=== PATIENT | female | born 2000 | race Caucasian/White ===

== ENCOUNTER 2023-07-22 22:23 | Emergency (ER) | payer BC, SELFPAY ==
[2023-07-22 22:36] VITALS: PULSE 76; O2SAT 97
[2023-07-22 22:40] VITALS: BP 124/78; PULSE 67; RESP 17; O2SAT 97
--- NOTE | 2023-07-22 22:47 | DI.RAD.S_ITS ---
PROCEDURE: XR CHEST 1V INDICATIONS: syncope TECHNIQUE: One view of the chest was acquired. COMPARISON: None. FINDINGS: Surgical changes and devices: None. Lungs and pleura: Lungs are clear. No pleural effusions or pneumothorax. Mediastinum: Mediastinal contours appear normal. Heart size is normal. Bones and chest wall: No suspicious bony lesions. Overlying soft tissues appear unremarkable. IMPRESSION: No acute cardiopulmonary abnormality is seen. Approved by: Fabiano Martins M.D. on 07/23/2023 at 0:29
--- NOTE | 2023-07-22 22:54 | ED_ITS ---
HPI - General Adult General Chief complaint: Syncope Stated complaint: Syncope Time Seen by Provider: 07/22/23 22:47 Source: patient Mode of arrival: Ambulatory History of Present Illness HPI narrative: 23-year-old woman who took her 1st dose of 50 mg of Zoloft and 5 mg of olanzapine today for new a history of bipolar disorder with worsening depression presents with a near syncopal episode. She was reportedly sitting at dinner felt funny and proceeded to almost pass out. Her family describes her still mumbling throughout the event. EMS came to evaluate her and told her that if she wanted further evaluation that self transport to the ER would be safe. She comes in for further evaluation. She states that she has otherwise been feeling well, no calorie restrictions, no weight loss, no nausea or vomiting, no chest pain no palpitations, no infectious etiology complaints or concerns no headaches.. She states she has had episodes similar to this previously with workup that was unremarkable at those times as well. Related Data Allergies Allergy/AdvReac Type Severity Reaction Status Date / Time No Known Drug Allergies Allergy Verified 07/22/23 23:02 Review of Systems Review of Systems Narrative: Pertinent positive and negative findings as per HPI Patient History Medical History (Updated 07/23/23 @ 00:12 by Naila Humphrey MD) Bipolar disorder Social History Smoking Status: Never smoker Smoking Status: Never smoker alcohol intake frequency: a few times a month Alcohol type: other Exam Initial Vital Signs Initial Vital Signs: Vital Signs Pulse Rate 76 07/22/23 22:36 Pulse Oximetry 97 07/22/23 22:36 Oxygen Delivery Method Room Air 07/22/23 22:36 General: Healthy appearing, in no acute distress. Able to give a complete and coherent history. Well-nourished well-developed After a L of fluid there was no evidence of any orthostasis HEENT: Moist mucous membranes, normal sclera with reactive pupils, Respiratory: Lungs are clear to auscultation, no wheezing no rales no rhonchi. Full and symmetrical air movement Cardiac: Regular rate and rhythm no murmurs no bruits Abdomen: Soft, nontender, good bowel tones, no flank pain Skin: Warm and dry, no rashes Neurologic: Grossly neurologically intact with no obvious asymmetries or abnormalities Extremities: No trauma, well perfused Psych: Cooperative, appropriate insight and affect Course Orders Ordered: ED Orders 07/22/23 22:47 XR chest 1V Stat EKG-12 Lead Stat 07/22/23 22:56 Complete Blood Count AUTO DIFF Stat Comprehensive Metabolic Panel Stat Magnesium Stat Troponin I Stat Discontinued Medications Sodium Chloride (Normal Saline 0.9%) 1,000 mls @ 1,000 mls/hr IV BOLUS ONE Stop: 07/22/23 23:46 Last Admin: 07/22/23 23:03 Dose: 1,000 mls/hr Documented By: GODFREY Vital Signs Vital signs: Vital Signs - 8 hr 07/22/23 22:36 07/22/23 22:40 07/22/23 23:00 Pulse Rate 76 67 72 Respiratory Rate 17 22 Blood Pressure 124/78 Pulse Oximetry 97 97 99 Oxygen Delivery Method Room Air Room Air Room Air Medical Decision Making Lab Data 07/22/23 22:56 07/22/23 22:56 Labs: Lab Results 07/22/23 Range/Units 22:56 WBC 7.4 (4.5-11.0) X10^3/uL RBC 4.39 (4.0-5.2) X10^6/uL Hgb 12.3 (12.0-16.0) g/dL Hct 37.2 (36-46) % MCV 84.8 (80-100) fL MCH 28.1 (26-34) PG MCHC 33.1 (30-36) % RDW 16.4 H (11.6-14.8) % Plt Count 255 (150-400) X10^3/uL Neut % (Auto) 73.5 (50-75) % Lymph % (Auto) 15.6 L (25-40) % [place] % (Auto) 10.0 (3-14) % Eos % (Auto) 0.4 L (2-4) % Baso % (Auto) 0.5 (0-2) % Neut # (Auto) 5500 (8297-3700) /uL Lymph # (Auto) 1200 (0350-2503) /uL [place] # (Auto) 700 (0-900) /uL Eos # (Auto) 0 (0-450) /uL Baso # (Auto) 0 (0-100) /uL Sodium 136 L (137-145) mmol/L Potassium 4.0 (3.4-5.1) mmol/L Chloride 106 (98-107) mmol/L Carbon Dioxide 23 (22-32) mmol/L BUN 8 (7-17) mg/dL Creatinine 0.59 (0.52-1.04) mg/dL Estimated GFR > 60 (>60) mL/min BUN/Creatinine Ratio 13.6 (6-22) Glucose 118 H (70-100) mg/dL Calcium 9.2 (8.4-10.2) mg/dL Magnesium 1.9 (1.6-2.3) mg/dL Total Bilirubin 0.4 (0.2-1.3) mg/dL AST 27 (14-36) IU/L ALT 13 (<35) IU/L Alkaline Phosphatase 79 (38-126) U/L Troponin I < 0.012 (0.01-0.034) ng/mL Total Protein 7.5 (6.3-8.2) g/dL Albumin 4.4 (3.5-5.0) g/dL Globulin 3.1 (1.7-4.1) g/dL Albumin/Globulin Ratio 1.4 (1.0-2.8) MDM Narrative Medical decision making narrative: CC: Near syncopal episode while sitting down Complicating co-morbidities: Bipolar disorder Data collected from: patient Differential considered: Adverse medication reaction, orthostatic hypotension, cardiac syncope Exam documented above, pertinent findings include: Exam is entirely benign Lab Test results independently reviewed as above. Pertinent findings: CBC is reassuring no evidence of infection or significant anemia Chemistries are all within normal limits with normal creatinine and electrolytes Troponin is undetectable Independently reviewed EKG: Sinus rhythm at a rate of 67. Normal QT, no acute ischemic changes Imaging studies independently reviewed: Chest x-ray shows no significant cardiomegaly or pulmonary infiltrates Treatments: 1 L of fluid Discussion: 23-year-old woman with near syncopal episode at dinner this evening. She had taken 5 mg of olanzapine and 50 mg of Zoloft as 1st doses of each distal couple hours before. Workup is entirely unremarkable. I suspect there was a moderate degree of orthostatic hypotension and her body needs a bit more time to adjust to the new doses of antidepressants. We discussed continuing with only 5 mg of olanzapine for approximately a week to allow her body to adjust to this. After that increasing/adding 25 mg of Zoloft and giving that dosing combination 2-3 weeks to adjust and see how she is feeling mood hopkins. She may not need to increase to 50 mg of Zoloft quite so quickly or at all. She finds this reasonable recommendation we will give it a try. She is reassured regarding normal workup. I do not suspect cardiomyopathy, cardiac syncope, stroke, sepsis, anemia, infection otherwise. Patient is not . Questions are answered additional workup is not required at this time and patient does not need hospitalization. She is safe for discharge Discharge Plan Departure Patient Disposition: Home Clinical Impression: Near syncope Instructions: DI for Syncope in Adults (Fainting) Activity Restrictions/Additional Instructions: Thank you for coming in today Your workup was actually very reassuring. You were given a L of fluid and I suspect that you were slightly dehydrated. Your kidney function, electrolytes, red blood cells and white blood cells were all very normal. I did a chest x-ray that was normal as well. There was no evidence of an enlarged heart, heart abnormalities or heart attack like symptoms. I suspect that the episode was related to your new medications. I am going to suggest that you start them at a bit lower doses and a bit more slowly. Going to suggest that you continue the 5 mg of olanzapine daily for the next week. On or about July 29 add in 25 mg of Zoloft. Please continue this combination for 2-3 weeks and see how your body response. If you find that you are mood is improving and you are not having any manic symptoms you may find that this lower dose of Zoloft in combination with the olanzapine is adequate. If not then add the 2nd half of the Zoloft tablet and go up to 50 mg as initially prescribed. If you find that you are getting worse or develop any new symptoms, please feel free to return to the emergency department for further evaluation. Stand Alone Forms: Patient Portal/API
[2023-07-22 23:00] VITALS: PULSE 72; RESP 22; O2SAT 99
[2023-07-22] MEDS: SODIUM CHLORIDE 0.9% 1,000 ML 1000 ML IV (23:03)
[2023-07-22 23:04] LABS: Add Manual Diff / Slide Review NO; Basophils Absolute Auto 0 /uL (0-100); Basophils Percent Auto 0.5 % (0-2); Eosinophils Absolute Auto 0 /uL (0-450); Eosinophils Percent Auto 0.4 % (2-4); Hematocrit 37.2 % (36-46); Hemoglobin 12.3 g/dL (12.0-16.0); Lymphocytes Absolute Auto 1200 /uL (1100-4500); Lymphocytes Percent Auto 15.6 % (25-40); Mean Corpuscular HGB Conc 33.1 % (30-36); Mean Corpuscular Hemoglobin 28.1 PG (26-34); Mean Corpuscular Volume 84.8 fL (80-100); Monocytes Absolute Auto 700 /uL (0-900); Neutrophils Absolute Auto 5500 /uL (1500-7000); Neutrophils Percent Auto 73.5 % (50-75); Platelet Count 255 X10^3/uL (150-400); Red Blood Cell Count 4.39 X10^6/uL (4.0-5.2); Red Cell Distribution Width 16.4 % (11.6-14.8); White Blood Cell Count 7.4 X10^3/uL (4.5-11.0)
[2023-07-22 23:14] LABS: Alanine Aminotransferase 13 IU/L (<35); Albumin 4.4 g/dL (3.5-5.0); Albumin Globulin Ratio 1.4 (1.0-2.8); Alkaline Phosphatase 79 U/L (38-126); Aspartate Aminotransferase 27 IU/L (14-36); BUN Creatinine Ratio 13.6 (6-22); Bilirubin Total 0.4 mg/dL (0.2-1.3); Blood Urea Nitrogen 8 mg/dL (7-17); Calcium 9.2 mg/dL (8.4-10.2); Carbon Dioxide 23 mmol/L (22-32); Chloride 106 mmol/L (98-107); Estimated Glomerular Filt Rate > 60 mL/min (>60); Globulin 3.1 g/dL (1.7-4.1); Glucose 118 mg/dL (70-100); HEMOLYSIS < 15 (0-50); Magnesium 1.9 mg/dL (1.6-2.3); Sodium 136 mmol/L (137-145); Total Protein 7.5 g/dL (6.3-8.2)
[2023-07-22 23:25] LABS: Troponin I < 0.012 ng/mL (0.01-0.034)
[2023-07-22 23:30] VITALS: PULSE 68; RESP 19; O2SAT 100
[2023-07-22 23:51] VITALS: BP 112/79; PULSE 80; RESP 20; O2SAT 99
[2023-07-23] VITALS: BP 107/61; PULSE 73; RESP 21; O2SAT 99
== END 2023-07-23 00:22 | disposition home or self-care (01) ==
PROVIDERS: Emergency Provider Emergency Medicine
DX: R55 Syncope and collapse (principal)
CPT/HCPCS: 71045; 80053; 83735; 84484; 85025; 93005; 99283; 99284

== ENCOUNTER 2024-07-24 11:58 | Inpatient (IN) | payer BC, OTHER, SELFPAY ==
[2024-07-24] VITALS (19 sets, daily range): BP systolic 88–112; BP diastolic 39–65; PULSE 92–131; RESP 16–48; TEMP 36.1–38.9; O2SAT 94–98; BMI 20.5
--- NOTE | 2024-07-24 12:17 | DI.RAD.S_ITS ---
PROCEDURE: XR CHEST 1V INDICATIONS: suspected sepsis TECHNIQUE: One view of the chest was acquired. COMPARISON: [facility], CR, XR CHEST 1V, 07/22/2023, 22:47. FINDINGS: Surgical changes and devices: None. Lungs and pleura: Subtle left basilar focal infiltrate. Remainder of the lungs and both pleural spaces clear. Mediastinum: Mediastinal contours appear normal. Heart size is normal. Bones and chest wall: No suspicious bony lesions. Overlying soft tissues appear unremarkable. IMPRESSION: Subtle left basilar focal pulmonary infiltrate Approved by: Lj Anglin M.D. on 07/24/2024 at 12:01
--- NOTE | 2024-07-24 12:17 | EKG_ITS ---
[address] [address] Test Date: 2024-07-24 Pat Name: Gracia Cross Department: [facility] Room: Gender: Female Flame Planer: RALPH : 2000 Requested By: Order Number: [id number] Reading MD: Mike Holt Measurements Intervals [place] Rate: 118 P: 67 AK: 118 QRS: 41 QRSD: 96 T: 48 QT: 300 QTc: 420 Interpretive Statements Sinus tachycardia Incomplete right bundle branch block Electronically Signed On 07-24-2024 13:58:35 PDT by Mike Holt
[2024-07-24] MEDS: SODIUM CHLORIDE 0.9% 1,000 ML 1000 ML IV (12:44)
[2024-07-24 12:48] LABS: Hematocrit 32.9 % (36-46); Hemoglobin 11.1 g/dL (12.0-16.0); Mean Corpuscular HGB Conc 33.7 % (30-36); Mean Corpuscular Volume 86.1 fL (80-100); Platelet Count 61 X10^3/uL (150-400); Red Blood Cell Count 3.82 X10^6/uL (4.0-5.2); Red Cell Distribution Width 14.7 % (11.6-14.8)
[2024-07-24 12:50] LABS: Add Manual Diff / Slide Review YES
[2024-07-24 12:57] LABS: INR 1.1 (0.9-1.3); Prothrombin Time 12.6 SECONDS (9.4-12.5)
[2024-07-24 13:00] LABS: Lactate (Lactic Acid) 0.9 mmol/L (0.7-2.1); PTT Partial Thromboplastin Tim 27 SECONDS (25.1-36.5)
[2024-07-24 13:01] LABS: Alanine Aminotransferase 20 IU/L (<35); Albumin 3.4 g/dL (3.5-5.0); Alkaline Phosphatase 119 U/L (38-126); Aspartate Aminotransferase 35 IU/L (14-36); BUN Creatinine Ratio 19.1 (6-22); Bilirubin Total 0.8 mg/dL (0.2-1.3); Blood Urea Nitrogen 13 mg/dL (7-17); Calcium 8.2 mg/dL (8.4-10.2); Carbon Dioxide 21 mmol/L (22-32); Chloride 94 mmol/L (98-107); Estimated Glomerular Filt Rate > 60 mL/min (>60); Globulin 3.3 g/dL (1.7-4.1); Glucose 128 mg/dL (70-99); HEMOLYSIS < 15 (0-50); Lipase 57 U/L (23-300); Potassium 3.2 mmol/L (3.4-5.1); Sodium 125 mmol/L (137-145); Total Protein 6.7 g/dL (6.3-8.2)
[2024-07-24 13:09] LABS: Neutrophils Absolute Manual 13950 /uL (3000-5900); RBC Morphology Normal Morphology; Total Cells Counted 100
[2024-07-24] MEDS: ACETAMINOPHEN 325 MG TABLET 975 MG PO (13:09)
[2024-07-24 13:18] LABS: Procalcitonin 26.5 ng/mL (<0.5)
--- NOTE | 2024-07-24 13:26 | ED.FEVER ---
HPI - Fever General Chief Complaint: Fever Stated Complaint: hypertension sent by walk in Time Seen by Provider: 07/24/24 12:50 Source: patient, RN notes reviewed and old records reviewed Mode of arrival: Family Vehicle Limitations: no limitations History of Present Illness HPI Narrative: 24-year-old female with no reported medical issues presents with complaint of feeling ill for about a week, patient's develop fevers, she developed a cough in the last 3 days she states has been mildly productive but no discoloration. Describes some left-sided chest pain, patient has felt more short of breath. She has had some nausea and vomiting. She was also had some diarrhea. No black or bloody stools. No urinary symptoms. No abdominal back or flank pain. Patient states no daily medications. No history of reactive airway or asthma. Reports an allergy to amoxicillin that has a rash as a baby but also notes it may has been from a viral illness. Has a surgery for a cyst on her head when she was a baby. Occasionally uses tobacco, uses alcohol intermittently, uses marijuana denies any other recreational or IV drugs. Patient lives on [facility]. Does not have a primary care physician. Related Data Home Medications ?Medication ?Instructions ?Recorded ?Confirmed No Known Home Medications 07/24/24 07/24/24 Allergies Allergy/AdvReac Type Severity Reaction Status Date / Time amoxicillin Allergy Rash Verified 07/24/24 12:12 Review of Systems Review of Systems ROS Unobtainable: All systems reviewed & are unremarkable except as noted in HPI and below Patient History Medical History Bipolar disorder Social History Smoking Status: Current every day smoker Smoking Status: Current every day smoker tobacco type: cigarettes alcohol intake frequency: a few times a month Alcohol type: other Exam Narrative Exam Narrative: GEN: Thin, nontoxic female, alert and oriented x 3, patient appears to be in [id number] distress. HEENT: Atraumatic, pupils are equal round reactive to light, extraocular movements are intact, nares are clear, TMs are clear with no fluid, there is no conjunctival pallor. Throat is clear without any exudates, erythema, tonsillar enlargement or uvular deviation, slightly dry mucous membranes HEART: Tachycardic but regular rate and rhythm without murmur, clicks, rubs. No carotid bruits, pulses are equal in upper and lower extremities LUNGS:Lungs decreased bilaterally, no wheezes, positive for tachypnea rales, crackles, chest moves symmetrically, patient was evaluated after receiving nebulizer treatment tachypnea has not improved able to speak in full sentences. ABD:bowel sounds normal, soft, non-tender, no guarding, rebound, rigidity, no masses noted, no hepatosplenomegaly :No CVA tenderness MSCL: Non-tender, no muscle atrophy, muscles strength 5/5 upper and lower extremities, full range of motion, normal gait NEURO:CN 2-12 intact, sensation normal. Initial Vital Signs Initial Vital Signs: Vital Signs Temperature 102.1 F H 07/24/24 12:06 Pulse Rate 131 H 07/24/24 12:06 Respiratory Rate 24 07/24/24 12:06 Blood Pressure 94/54 L 07/24/24 12:06 Pulse Oximetry 94 07/24/24 12:06 Oxygen Delivery Method Room Air 07/24/24 12:06 Course Orders Ordered: ED Orders 07/24/24 12:17 XR chest 1V Stat EKG-12 Lead Stat RT Consult Eval and Treat NOW 07/24/24 12:30 Blood Culture Stat 07/24/24 12:37 Complete Blood Count AUTO DIFF Stat Comprehensive Metabolic Panel Stat Lactate (Lactic Acid) Stat Lipase Stat PTT Partial Thromboplastin [place] Stat Procalcitonin Stat Prothrombin Time INR Stat 07/24/24 12:45 Covid-19 + FLU A/B + RSV - PCR Stat Respiratory Panel (Film Array) Stat Albuterol (Albuterol 2.5 Mg/3 Ml Neb (Adult)) 2.5 mg INH [id number] PRN PRN Reason: Shortness Of Breath Last Admin: 07/24/24 13:39 Dose: 2.5 mg Documented By: SAT Sodium Chloride (Normal Saline 0.9%) 1,673.76 mls @ 557.92 mls/hr 30 ml/kg infuse over 3 hr (1673.76 ml) IV NOW ONE Stop: 07/24/24 16:27 Last Admin: 07/24/24 13:47 Dose: 557.92 mls/hr Documented By: LM Discontinued Medications Acetaminophen (Acetaminophen 325 Mg Tablet) 975 mg PO NOW ONE Stop: 07/24/24 12:52 Last Admin: 07/24/24 13:09 Dose: 975 mg Documented By: YUMIKO Sodium Chloride (Normal Saline 0.9%) 1,000 mls @ 1,000 mls/hr IV BOLUS ONE Stop: 07/24/24 13:16 Last Infusion: 07/24/24 13:43 Dose: 1,000 mls/hr Documented By: Admin: 07/24/24 12:44 Dose: 1,000 mls/hr Documented By: YUMIKO Ceftriaxone Sodium 1,000 mg/ (Sodium Chloride) 100 mls @ 200 mls/hr IV NOW ONE Stop: 07/24/24 13:46 Azithromycin 500 mg/ Dextrose 250 mls @ 250 mls/hr IV NOW ONE Stop: 07/24/24 13:46 Ondansetron HCl (Ondansetron 4 Mg/2 Ml Inj) 4 mg IV NOW PRN PRN Reason: Nausea And Vomiting Ondansetron HCl (Ondansetron 4 Mg Odt) 4 mg PO NOW PRN PRN Reason: Nausea And Vomiting Vital Signs Vital signs: Vital Signs - 8 hr 07/24/24 12:06 07/24/24 12:20 07/24/24 12:21 Temperature 102.1 F H Pulse Rate 131 H 125 H Respiratory Rate 24 35 H Blood Pressure 94/54 L 100/56 L Pulse Oximetry 94 Oxygen Delivery Method Room Air 07/24/24 12:21 07/24/24 12:30 07/24/24 12:36 Temperature Pulse Rate 124 H 120 H Respiratory Rate 36 H 41 H Blood Pressure 103/55 L Pulse Oximetry 94 95 Oxygen Delivery Method 07/24/24 12:36 07/24/24 12:40 07/24/24 12:40 Temperature Pulse Rate 114 H 117 H Respiratory Rate 38 H 36 H Blood Pressure 106/55 L Pulse Oximetry 95 96 Oxygen Delivery Method 07/24/24 12:50 07/24/24 12:50 07/24/24 13:00 Temperature Pulse Rate 114 H Respiratory Rate 42 H Blood Pressure 109/61 107/60 Pulse Oximetry 97 Oxygen Delivery Method 07/24/24 13:00 07/24/24 13:10 07/24/24 13:10 Temperature 98.9 F Pulse Rate 122 H 121 H Respiratory Rate 38 H 46 H Blood Pressure 110/60 Pulse Oximetry 95 95 Oxygen Delivery Method 07/24/24 13:20 07/24/24 13:20 07/24/24 13:30 Temperature Pulse Rate 118 H Respiratory Rate 48 H Blood Pressure 112/65 105/65 Pulse Oximetry 97 Oxygen Delivery Method 07/24/24 13:30 07/24/24 13:40 07/24/24 13:40 Temperature Pulse Rate 123 H 127 H Respiratory Rate 41 H 35 H Blood Pressure 88/55 L Pulse Oximetry 96 97 Oxygen Delivery Method 07/24/24 13:50 07/24/24 13:50 07/24/24 14:00 Temperature Pulse Rate 123 H 121 H Respiratory Rate 27 H 39 H Blood Pressure 106/54 L Pulse Oximetry 98 98 Oxygen Delivery Method 07/24/24 14:04 07/24/24 14:04 Temperature Pulse Rate 120 H Respiratory Rate 48 H Blood Pressure 102/55 L Pulse Oximetry 98 Oxygen Delivery Method MDM - Fever Lab Data 07/24/24 12:37 07/24/24 12:37 Labs: Lab Results 07/24/24 07/24/24 Range/Units 12:37 12:45 WBC 15.0 H (4.5-11.0) X10^3/uL RBC 3.82 L (4.0-5.2) X10^6/uL Hgb 11.1 L (12.0-16.0) g/dL Hct 32.9 L (36-46) % MCV 86.1 (80-100) fL MCH 29.0 (26-34) PG MCHC 33.7 (30-36) % RDW 14.7 (11.6-14.8) % Plt Count 61 L (150-400) X10^3/uL Neut % (Auto) Not Reportable Lymph % (Auto) Not Reportable [place] % (Auto) Not Reportable Eos % (Auto) Not Reportable Baso % (Auto) Not Reportable Lymph # (Auto) Not Reportable [place] # (Auto) Not Reportable Baso # (Auto) Not Reportable Total Counted 100 Seg Neutrophils % 83.0 H (38-70) % Band Neutrophils % 10.0 H (3-7) % Lymphocytes % (Manual) 4.0 L (25-45) % Monocytes % (Manual) 1.0 L (2-11) % Metamyelocytes % 1.0 H (-0) % Myelocytes % 1.0 H (-0) % Neutrophils # (Manual) 86006 H (1153-8873) /uL RBC Morphology Normal morphology PT 12.6 H (9.4-12.5) SECONDS INR 1.1 (0.9-1.3) APTT 27 (25.1-36.5) SECONDS Sodium 125 L (137-145) mmol/L Potassium 3.2 L (3.4-5.1) mmol/L Chloride 94 L (98-107) mmol/L Carbon Dioxide 21 L (22-32) mmol/L BUN 13 (7-17) mg/dL Creatinine 0.68 (0.52-1.04) mg/dL Estimated GFR > 60 (>60) mL/min BUN/Creatinine Ratio 19.1 (6-22) Glucose 128 H (70-99) mg/dL Lactate 0.9 (0.7-2.1) mmol/L Calcium 8.2 L (8.4-10.2) mg/dL Total Bilirubin 0.8 (0.2-1.3) mg/dL AST 35 (14-36) IU/L ALT 20 (<35) IU/L Alkaline Phosphatase 119 (38-126) U/L Total Protein 6.7 (6.3-8.2) g/dL Albumin 3.4 L (3.5-5.0) g/dL Globulin 3.3 (1.7-4.1) g/dL Albumin/Globulin Ratio 1.0 (1.0-2.8) Lipase 57 (23-300) U/L Procalcitonin 26.5 H (<0.5) ng/mL SARS-CoV-2 (PCR) Negative (Negative) Influenza A (RT-PCR) Flu a negative (NEGATIVE) Influenza B (RT-PCR) Flu b negative (NEGATIVE) RSV (PCR) Negative (Negative) ECG Data Attestation: I personally reviewed and interpreted this ECG as follows: Prior ECG tracings: not available for review Interpretation: Sinus tachycardia rate of 118, ND 118 QRS of 96 QTC 420, incomplete right bundle-branch block. No prior for comparison MDM Narrative Medical decision making narrative: Labs show white count of 15 we will 7.43 days ago, hemoglobin 0.1 platelets are 61 was 2553 days ago patient has predominance of segmented neutrophils and 10% bands. INR is 1.1, sodium is 125 was 1363 days ago potassium 3.2 chloride 94 CO2 is 21 BUN 13 creatinine 0.68 glucose of 128 lactate 0.9 LFTs are negative procalcitonin is 26.5. COVID/influenza/RSV Chest x-ray subtle left basilar focal pulmonary infiltrate. Patient had chest x-ray from 3 days ago read as negative. Patient received fluids 30 cc/kilos bolus, Tylenol, IV antibiotics. Albuterol neb. Patient's exam and workup seem most consistent with a bacterial pneumonia was started on IV antibiotics. Patient noted an allergy to amoxicillin but was noticed has a rash possibility of a has been written related to a viral illness. Patient is febrile, tachycardic, intermittently hypotensive but does seem fluid responsive. Lactate is normal range but procalcitonin is elevated at 26. Patient also has 10% bands. She was left basilar changes on her chest x-ray. On rechecked at 13 56 patient's cap refills less than 2 seconds. Patient is still tachycardic. Receiving additional fluids. Just completed nebulizer treatment patient was not wheezy on exam but has some improvement in air movement and patient notes helps symptoms quite at bit. Spoke with Dr. Holt, hospitalist @ [phone] accepts for inpatient admission. Reviewed findings, treatment thus far, does ask for respiratory panel to be added on. Critical Care Time Critical Care Time Critical Care Time: Yes Total Critical Care Time: 25 Attestation: The high probability of a clinically significant, sudden or life threatening deterioration of the cardiac/pulmonary system(s) required my full and direct attention, intervention and personal management. The aggregate critical care time was [--] minutes. This time is in addition to time spent performing reported procedures but includes the following: [x] Data Review and interpretation [x] Patient assessment and monitoring of vital signs [x] Documentation [x] Medication orders and management Discharge Plan Departure Patient Disposition: Admitted As Inpatient Clinical Impression: Community acquired pneumonia, Sepsis Admit Date/Time: 07/24/24 14:04 Admit Provider: Mike Holt
[2024-07-24 13:28] LABS: COVID-19 CEPHEID 4-PLEX PCR Negative (Negative); Influenza A - CEPHEID Flu A NEGATIVE (NEGATIVE); Influenza B - CEPHEID Flu B NEGATIVE (NEGATIVE); Respiratory Syncytial Virus Negative (Negative)
--- NOTE | 2024-07-24 13:31 | PC.NURSE ---
RT evaluated pt. Pt sitting upright on stretcher, RA, A&Ox4, breathing shallow/rapid rate of breath/even movement. Pt endorses pain on inhalation. Call light within reach. RT giving IS teaching and IS device to pt at this time
[2024-07-24] MEDS: ALBUTEROL 2.5 MG/3 ML NEB (ADULT) INH (13:39)
[2024-07-24] MEDS: SODIUM CHLORIDE 0.9% 557.92 ML IV (13:47)
[2024-07-24] MEDS: cefTRIAXone 1,000 MG in SODIUM CHLORIDE 0.9% 100 ML 200 MG IV (14:27)
[2024-07-24 14:51] LABS: Pregnancy Test Serum,Qual Negative (Negative)
[2024-07-24] MEDS: AZITHROMYCIN 500 MG in DEXTROSE 5% IN WATER 250 ML 250 MG IV (14:52)
[2024-07-24 14:59] LABS: Adenovirus Not Detected (Not Detect); B. parapertussis Not Detected (Not Detecte); Bordetella pertussis Not Detected (Not Detect); Chlamydophila pneumoniae Not Detected (Not Detect); Coronavirus 229E Not Detected (Not Detect); Coronavirus HKU1 Not Detected (Not Detect); Coronavirus NL 63 Not Detected (Not Detect); Coronavirus OC43 Not Detected (Not Detect); Human Metapneumovirus Not Detected (Not Detect); Human Rhinovirus/Enterovirus Not Detected (Not Detect); Influenza A Not Detected (Not Detect); Influenza B Not Detected (Not Detect); Mycoplasma pneumoniae Not Detected (Not Detect); Parainfluenza Virus 1 Not Detected (Not Detect); Parainfluenza Virus 2 Not Detected (Not Detect); Parainfluenza Virus 3 Not Detected (Not Detect); Parainfluenza Virus 4 Not Detected (Not Detect); Respiratory Syncytial Virus Not Detected (Not Detect); SARS- CoV-2 Not Detected (Not Detecte)
--- NOTE | 2024-07-24 15:06 | PM.HP.1 ---
History of Present Illness History of Present Illness Date Patient Seen: 07/24/24 Chief complaint: hypertension sent by walk in Narrative: From ED doctor: 24-year-old female with no reported medical issues presents with complaint of feeling ill for about a week, patient's develop fevers, she developed a cough in the last 3 days she states has been mildly productive but no discoloration. Describes some left-sided chest pain, patient has felt more short of breath. She has had some nausea and vomiting. She was also had some diarrhea. No black or bloody stools. No urinary symptoms. No abdominal back or flank pain. Patient states no daily medications. No history of reactive airway or asthma. Reports an allergy to amoxicillin that has a rash as a baby but also notes it may has been from a viral illness. Has a surgery for a cyst on her head when she was a baby. Occasionally uses tobacco, uses alcohol intermittently, uses marijuana denies any other recreational or IV drugs. Patient lives on [facility]. Does not have a primary care physician. S: She feels better since having IV fluids. She was had some coughing, nausea, vomiting, diarrhea, and generalized fatigue. She denies any dyspnea. She has been having fevers as well. [facility] Medical History Bipolar disorder Social History Smoking Status: Current every day smoker Meds Home Medications and Allergies Home Medications ?Medication ?Instructions ?Recorded ?Confirmed ?Type No Known Home Medications 07/24/24 07/24/24 History Allergies Allergy/AdvReac Type Severity Reaction Status Date / Time amoxicillin Allergy Rash Verified 07/24/24 12:12 Review of Systems Review of Systems Narrative: All else reviewed and otherwise unremarkable except as noted in the history and physical. Exam Vital Signs (past 8 hours): - 07/24/24 12:06 07/24/24 12:20 07/24/24 12:21 Temperature 102.1 F H Pulse Rate 131 H 125 H Respiratory Rate 24 35 H Blood Pressure 94/54 L 100/56 L Pulse Oximetry 94 Oxygen Delivery Method Room Air 07/24/24 12:21 07/24/24 12:30 07/24/24 12:36 Temperature Pulse Rate 124 H 120 H Respiratory Rate 36 H 41 H Blood Pressure 103/55 L Pulse Oximetry 94 95 Oxygen Delivery Method 07/24/24 12:36 07/24/24 12:40 07/24/24 12:40 Temperature Pulse Rate 114 H 117 H Respiratory Rate 38 H 36 H Blood Pressure 106/55 L Pulse Oximetry 95 96 Oxygen Delivery Method 07/24/24 12:50 07/24/24 12:50 07/24/24 13:00 Temperature Pulse Rate 114 H Respiratory Rate 42 H Blood Pressure 109/61 107/60 Pulse Oximetry 97 Oxygen Delivery Method 07/24/24 13:00 07/24/24 13:10 07/24/24 13:10 Temperature 98.9 F Pulse Rate 122 H 121 H Respiratory Rate 38 H 46 H Blood Pressure 110/60 Pulse Oximetry 95 95 Oxygen Delivery Method 07/24/24 13:20 07/24/24 13:20 07/24/24 13:30 Temperature Pulse Rate 118 H Respiratory Rate 48 H Blood Pressure 112/65 105/65 Pulse Oximetry 97 Oxygen Delivery Method 07/24/24 13:30 07/24/24 13:40 07/24/24 13:40 Temperature Pulse Rate 123 H 127 H Respiratory Rate 41 H 35 H Blood Pressure 88/55 L Pulse Oximetry 96 97 Oxygen Delivery Method 07/24/24 13:45 07/24/24 13:50 07/24/24 13:50 Temperature Pulse Rate 122 H 123 H Respiratory Rate 20 27 H Blood Pressure 106/54 L Pulse Oximetry 97 98 Oxygen Delivery Method Room Air 07/24/24 14:00 07/24/24 14:04 07/24/24 14:04 Temperature Pulse Rate 121 H 120 H Respiratory Rate 39 H 48 H Blood Pressure 102/55 L Pulse Oximetry 98 98 Oxygen Delivery Method 07/24/24 14:57 Temperature 99.4 F Pulse Rate 117 H Respiratory Rate 48 H Blood Pressure 89/52 L Pulse Oximetry 97 Oxygen Delivery Method Room Air Oxygen Delivery Method Room Air Narrative Exam Narrative: NAD, alert and oriented, fluent speech, calm. Non-toxic in appearance. Normocephalic skull, EOMI, anicteric sclera, symmetric pupils. Oropharynx unremarkable, no droop. Neck supple, midline trachea, no adenopathy. Lungs clear, normal rate and effort. Heart regular, no murmur gallop or rub. Abdomen is soft, non distended and non tender. Extremities are free of edema. Skin is free of rash or lesions. Joints are not swollen or deformed. Judgment appears to be normal. Objective ECG Impression: Intervals [place] Rate: 118 P: 67 MA: 118 QRS: 41 QRSD: 96 T: 48 QT: 300 QTc: 420 Interpretive Statements Sinus tachycardia Incomplete right bundle branch block Imaging Chest x-ray: Radiologist's impression: Surgical changes and devices: None. Lungs and pleura: Subtle left basilar focal infiltrate. Remainder of the lungs and both pleural spaces clear. Mediastinum: Mediastinal contours appear normal. Heart size is normal. Bones and chest wall: No suspicious bony lesions. Overlying soft tissues appear unremarkable. IMPRESSION: Subtle left basilar focal pulmonary infiltrate Labs 07/24/24 12:37 07/24/24 12:37 Labs: Laboratory Results - last 24 hr 07/24/24 07/24/24 07/24/24 12:37 12:45 12:45 WBC 15.0 H RBC 3.82 L Hgb 11.1 L Hct 32.9 L MCV 86.1 MCH 29.0 MCHC 33.7 RDW 14.7 Plt Count 61 L Neut % (Auto) Not Reportable Lymph % (Auto) Not Reportable [place] % (Auto) Not Reportable Eos % (Auto) Not Reportable Baso % (Auto) Not Reportable Lymph # (Auto) Not Reportable [place] # (Auto) Not Reportable Baso # (Auto) Not Reportable Total Counted 100 Seg Neutrophils % 83.0 H Band Neutrophils % 10.0 H Lymphocytes % (Manual) 4.0 L Monocytes % (Manual) 1.0 L Metamyelocytes % 1.0 H Myelocytes % 1.0 H Neutrophils # (Manual) 47012 H RBC Morphology Normal morphology PT 12.6 H INR 1.1 APTT 27 Sodium 125 L Potassium 3.2 L Chloride 94 L Carbon Dioxide 21 L BUN 13 Creatinine 0.68 Estimated GFR > 60 BUN/Creatinine Ratio 19.1 Glucose 128 H Lactate 0.9 Calcium 8.2 L Total Bilirubin 0.8 AST 35 ALT 20 Alkaline Phosphatase 119 Total Protein 6.7 Albumin 3.4 L Globulin 3.3 Albumin/Globulin Ratio 1.0 Lipase 57 Procalcitonin 26.5 H Serum , Qual Negative Chlamy pneumoniae PCR Not detected Adenovirus (PCR) Not detected B. pertussis DNA (PCR) Not detected B.parapertussis DNA PCR Not detected Coronavirus OC43 (PCR) Not detected Coronavirus HKU1 (PCR) Not detected Coronavirus 229E (PCR) Not detected SARS-CoV-2 (PCR) Negative Not detected Coronavirus NL63 (PCR) Not detected Human Metapneumovir PCR Not detected Influenza A (RT-PCR) Flu a negative Influenza Type A (PCR) Not detected Influenza B (RT-PCR) Flu b negative Influenza Type B (PCR) Not detected M. pneumoniae (PCR) Not detected Parainfluenza 1 (PCR) Not detected Parainfluenza 2 (PCR) Not detected Parainfluenza 3 (PCR) Not detected Parainfluenza 4 (PCR) Not detected RSV (PCR) Negative Entero/Rhino (PCR) 07/24/24 12:45 WBC RBC Hgb Hct MCV MCH MCHC RDW Plt Count Neut % (Auto) Lymph % (Auto) [place] % (Auto) Eos % (Auto) Baso % (Auto) Lymph # (Auto) [place] # (Auto) Baso # (Auto) Total Counted Seg Neutrophils % Band Neutrophils % Lymphocytes % (Manual) Monocytes % (Manual) Metamyelocytes % Myelocytes % Neutrophils # (Manual) RBC Morphology PT INR APTT Sodium Potassium Chloride Carbon Dioxide BUN Creatinine Estimated GFR BUN/Creatinine Ratio Glucose Lactate Calcium Total Bilirubin AST ALT Alkaline Phosphatase Total Protein Albumin Globulin Albumin/Globulin Ratio Lipase Procalcitonin Serum , Qual Chlamy pneumoniae PCR Adenovirus (PCR) B. pertussis DNA (PCR) B.parapertussis DNA PCR Coronavirus OC43 (PCR) Coronavirus HKU1 (PCR) Coronavirus 229E (PCR) SARS-CoV-2 (PCR) Coronavirus NL63 (PCR) Human Metapneumovir PCR Influenza A (RT-PCR) Influenza Type A (PCR) Influenza B (RT-PCR) Influenza Type B (PCR) M. pneumoniae (PCR) Parainfluenza 1 (PCR) Parainfluenza 2 (PCR) Parainfluenza 3 (PCR) Parainfluenza 4 (PCR) RSV (PCR) Not detected Entero/Rhino (PCR) Not detected Assessment & Plan Assessment & Plan narrative: 1. CAP, active 2. Hypovolemia hyponatremia, active. 3. Hypokalemia, active. 4. Sepsis with qSOFA 2 (RR, SBP), active. High risk of mortality. Source is pneumonia. Lactate normal. 5. N,V, Diarrhea. Active. PLAN: -sepsis fluid resuscitation per protocol. -IV antibiotics, cultures were obtained in the ED. Respiratory PCR negative. -monitor blood pressure. -3 HR reperfusion examination. -monitor sodium. -replace and monitor potassium. Anticipate 2 midnights of care, supports inpatient status. Full resuscitation. Time-Based Coding :: 45 min spent with patient and on the chart (including review of chart, obtaining history, exam, reviewing outside data, placing orders, documenting exam and treatment plan, and counseling patient) on 07/24. Quality MIPS - Admit I confirm the patient?s Advance Care Plan is present, Code status is documented, Surrogate decision maker is in patient?s record [If Yes, STOP here]: Yes MIPS - Meds 'Current medications' to include all prescriptions, [id number] products, herbals, cannabis/cannabidiol products, and vitamin/mineral/dietary (nutritional) supplements. I have utilized all available resources to obtain, update, or review the patient?s current medications. [If Yes, STOP here]: Yes
[2024-07-24] MEDS: SODIUM CHLORIDE 0.9% 1,000 ML 100 ML IV ×2 (16:09→21:55)
[2024-07-24 16:41] LABS: Appearance Urine UA CLEAR; Bilirubin Urine UA NEGATIVE (NEGATIVE); Color Urine UA YELLOW; Glucose Urine UA NEGATIVE (Negative); Ketones Urine UA TRACE (NEGATIVE); Leukocyte Esterase Urine UA NEGATIVE (NEGATIVE); Nitrite Urine UA NEGATIVE (Negative); Occult Blood Urine UA 1+ (Negative); Protein Urine UA NEGATIVE (Negative); Specific Gravity Urine UA <=1.005 (1.000-1.035); Urobilinogen Urine UA 0.2 E.U./dL (0.2)
[2024-07-24 16:42] LABS: Urine Volume 10mL (spun)
[2024-07-24 16:47] LABS: Bacteria Urine Occasional (0-1); Pregnancy Test Urine Negative (Negative); RBC Urine 0-1/HPF (0-5/HPF); Squamous Epithelial Cell Urine 0-1 /HPF (0-5/HPF); WBC Urine None Seen (0-5/HPF)
[2024-07-24 16:48] LABS: Culture Indicated Urine Cult Not Indicated
[2024-07-24] MEDS: POTASSIUM CHLORIDE 20 MEQ TAB 40 MEQ PO (17:24)
[2024-07-24] MEDS: BENZONATATE 100 MG CAPSULE PO (17:24)
[2024-07-24] MEDS: SODIUM CHLORIDE 0.9% 500 ML 1000 ML IV (21:23)
[2024-07-24] MEDS: guaiFENesin ER 600 MG TAB PO (21:23)
--- NOTE | 2024-07-24 22:08 | PC.NURSE ---
Addendum entered by Manuel Shell R.N. 07/25/24 06:44: PT INTERMITTENTLY FEELING SOB/ CHEST PAIN/CHILLS OVERNIGHT. PAIN/COUGH MEDICINE GIVEN. PT ABLE TO GET SOME REST AFTER MED ADMINISTRATION. MOTHER CURRENTLY AT BEDSIDE. PT COMFORTABLE IN BED. CALL LIGHT IN REACH. NO COMPLAINTS AT THIS TIME. Original Note: 0828: PT C/O SOB/ CHEST PAIN. STATES SHE IS HAVING DIFFICULTY BREATHING AND SHE FEELS VERY COLD. 97.9F, HEART RATE 148. BP 102/52. BEAR HUGGER/ TELE MONITOR PLACED ON PT. MADE DR VINCENT AWARE. STATES TO GIVE 500 ML NS BOLUS. ORDER PLACED. ALSO STATES OK TO HOLD HEP SQ D/T LOW PLTS AND KEEP PT ON TELE. 2200 BOLUS FINISHED. PT STATES SHE FEELS BETTER AND IS NO LONGER COLD. BEAR HUGGER TURNED OFF. HEART RATE DOWN TO 121 AT THIS TIME.
[2024-07-25] VITALS (11 sets, daily range): BP systolic 90–112; BP diastolic 43–61; PULSE 89–117; RESP 14–18; TEMP 35.9–37.9; O2SAT 93–100
[2024-07-25] MEDS: ACETAMINOPHEN 325 MG TABLET 650 MG PO ×4 (00:36→20:51)
[2024-07-25] MEDS: BENZONATATE 100 MG CAPSULE PO (03:45)
[2024-07-25 05:23] LABS: Hematocrit 27.7 % (36-46); Hemoglobin 9.3 g/dL (12.0-16.0); Mean Corpuscular HGB Conc 33.6 % (30-36); Mean Corpuscular Volume 86.4 fL (80-100); Platelet Count 50 X10^3/uL (150-400); Red Blood Cell Count 3.21 X10^6/uL (4.0-5.2); Red Cell Distribution Width 14.7 % (11.6-14.8)
[2024-07-25 05:41] LABS: Add Manual Diff / Slide Review YES; BUN Creatinine Ratio 16.4 (6-22); Blood Urea Nitrogen 9 mg/dL (7-17); Calcium 7.4 mg/dL (8.4-10.2); Carbon Dioxide 19 mmol/L (22-32); Chloride 109 mmol/L (98-107); Estimated Glomerular Filt Rate > 60 mL/min (>60); Glucose 130 mg/dL (70-99); HEMOLYSIS < 15 (0-50); Potassium 4.1 mmol/L (3.4-5.1); Sodium 134 mmol/L (137-145)
[2024-07-25 05:47] LABS: Neutrophils Absolute Manual 9840 /uL (3000-5900); Total Cells Counted 100
[2024-07-25 05:48] LABS: RBC Morphology Normal Morphology
[2024-07-25] MEDS: SODIUM CHLORIDE 0.9% 1,000 ML 100 ML IV ×2 (07:38→18:19)
[2024-07-25] MEDS: guaiFENesin ER 600 MG TAB PO ×2 (09:30→20:51)
[2024-07-25 12:22] LABS: Acinetobacter calcoa-baumannii Not Detected (Not Detect); Bacteroides fragilis Not Detected (Not Detect); Candida albicans Not Detected (Not Detect); Candida auris Not Detected (Not Detect); Candida glabrata Not Detected (Not Detect); Candida krusei Not Detected (Not Detect); Candida parapsilosis Not Detected (Not Detect); Candida tropicalis Not Detected (Not Detect); Cryptococcus neoformans/gatti Not Detected (Not Detect); Enterobacter cloacae complex Not Detected (Not Detect); Enterobacterales Not Detected (Not Detect); Enterococcus faecalis Not Detected (Not Detect); Enterococcus faecium Not Detected (Not Detect); Haemophilus influenzae Not Detected (Not Detect); Klebsiella aerogenes Not Detected (Not Detect); Listeria monocytogenes Not Detected (Not Detect); Neisseria meningitidis Not Detected (Not Detect); Proteus species Not Detected (Not Detect); Pseudomonas aeruginosa Not Detected (Not Detect); Salmonella species Not Detected (Not Detect); Serratia marcescens Not Detected (Not Detect); Staphylococcus epidermidis Not Detected (Not Detect); Staphylococcus lugdunensis Not Detected (Not Detect); Staphylococcus species Not Detected (Not Detect); Stenotrophomonas maltophilia Not Detected (Not Detect); Streptococcus agalactiae (Gr B Not Detected (Not Detect); Streptococcus pneumonia Not Detected (Not Detect); Streptococcus pyogenes (Gr A) Not Detected (Not Detect); Streptococcus species Not Detected (Not Detect)
[2024-07-25] MEDS: AZITHROMYCIN 250 MG TABLET 500 MG PO (13:09)
[2024-07-25] MEDS: cefTRIAXone 1,000 MG in SODIUM CHLORIDE 0.9% 100 ML 200 MG IV (13:09)
--- NOTE | 2024-07-25 14:07 | CM.DANOTE ---
DCP Assessment note pt is a 24yo F admitted with sepsis/pneumonia. PCP none, hopeful to establish care with PCP [place]. [employer] ELECTRONICS TECH reviewed EMR. per chart, pt lives alone on [place]. moved here from [place] recently. mom here from out of town. per RN, sodium and potassium better. continued fever. on IV abx. ELECTRONICS TECH met with pt and mom briefly in room. pt confirms indep at baseline. denies any comm resources/needs. hopeful to establish with PCP on [place]. reports a friend will drive her to the [employer] and then her and mom will walk on and another friend will pick them up on [place]. if that changes, they will attempt a [employer] car reservation first and if none available will reach out to the ELECTRONICS TECH for ferry pass. ELECTRONICS TECH messaged TCM group about them assisting pt establish PCP f/u [place]. P: anticipate dc tomorrow/when medically stable. home with mom support and establishing OP PCP f/u. will continue to follow as needed for additional DCP coordination (ferry pass?) FRANCO Sanchez Discharge Planning/Care Management CM Discharge Assessment Start: 07/24/24 14:13 Freq: Status: Active Protocol: Document 07/25/24 14:06 (Rec: 07/25/24 14:07 Desktop) Discharge Planning Assessment Assigned Discharge FRANCO Riley Clerical Support DPOA/Assigned Deborah mccormack Designee Name Contact Information [phone] Advance Directives? No History Provided By Patient Prior Living Apartment/Condo Arrangements Household Members none Type of Drives own vehicle transporation used prior to admit Independent with ADL Yes 's Is patient alert and Yes oriented? Barriers to No Discharge Discharge Plan Home Referrals Initiated None needed Whiteboard Updated Yes in Patient Room with name and ext. # of Support Manager Review Status In Process Please Provide Date 07/25/24 Initial DC Assessment Was Performed Next Review Type Continued Stay Review
[2024-07-25] MEDS: ALBUTEROL 2.5 MG/3 ML NEB (ADULT) INH (14:48)
--- NOTE | 2024-07-25 15:58 | P.PN_ITS ---
Subjective Subjective Interval history: 24 F admitted with sepsis secondary to presumed PNA. Blood cultures 1/4 positive with GNB, completely negative PCR so unclear as to etiology yet. Feels much improved today, WBC improving, now off supplemental O2. Exam Vital Signs (past 8 hours): - 07/25/24 08:00 07/25/24 08:00 07/25/24 11:52 Temperature 97.5 F L Pulse Rate 89 Respiratory Rate 16 Blood Pressure 90/61 94/47 L Pulse Oximetry 96 Oxygen Delivery Method Room Air Oxygen Flow Rate 0 Fraction of Inspired Oxygen 07/25/24 14:27 07/25/24 14:54 Temperature 100.2 F H Pulse Rate 104 H Respiratory Rate 18 Blood Pressure Pulse Oximetry 99 Oxygen Delivery Method Room Air Oxygen Flow Rate Fraction of Inspired Oxygen 21 Fraction of Inspired Oxygen 21 SaO2/FiO2 Ratio 466 Oxygen Delivery Method Room Air Oxygen Flow Rate 0 Narrative Exam Narrative: Gen: WDWN no acute distress CV: RRR no m/r/g Pulm: CTA b/l Abd S NT ND Ext: No edema Objective Labs 07/25/24 05:13 07/25/24 05:13 Labs: Laboratory Results - last 24 hr 07/24/24 07/24/24 07/25/24 12:37 16:00 05:13 WBC 12.0 H RBC 3.21 L Hgb 9.3 L Hct 27.7 L MCV 86.4 MCH 29.0 MCHC 33.6 RDW 14.7 Plt Count 50 L Neut % (Auto) Not Reportable Lymph % (Auto) Not Reportable [place] % (Auto) Not Reportable Eos % (Auto) Not Reportable Baso % (Auto) Not Reportable Lymph # (Auto) Not Reportable [place] # (Auto) Not Reportable Baso # (Auto) Not Reportable Total Counted 100 Seg Neutrophils % 80.0 H Band Neutrophils % 2.0 L Lymphocytes % (Manual) 14.0 L Monocytes % (Manual) 4.0 Neutrophils # (Manual) 9840 H RBC Morphology Normal morphology Sodium 134 L Potassium 4.1 Chloride 109 H Carbon Dioxide 19 L BUN 9 Creatinine 0.55 Estimated GFR > 60 BUN/Creatinine Ratio 16.4 Glucose 130 H Calcium 7.4 L Urine Color Yellow Urine Appearance Clear Urine pH 6.0 Ur Specific [place] <=1.005 Urine Protein Negative Urine Glucose (UA) Negative Urine Ketones Trace H Urine Occult Blood 1+ H Urine Nitrate Negative Urine Bilirubin Negative Urine Urobilinogen 0.2 Ur Leukocyte Esterase Negative Urine RBC 0-1/hpf Urine WBC None seen Ur Squamous Epith Cells 0-1 /hpf Urine Bacteria Occasional (0-1) Ur Culture Indicated? Cult not indicated Vol Urine Centrifuged 10ml (spun) Urine Test Negative A.calcoaceticus-baumannii cmplx PCR Not detected Bacteroides fragilis Not detected [place] albicans (PCR) Not detected [place] auris (PCR) Not detected C. glabrata (PCR) Not detected C. krusei (PCR) Not detected C. parapsilosis (PCR) Not detected C. tropicalis (PCR) Not detected C. neoform/gattii (PCR) Not detected Enterobacterales (PCR) Not detected E. cloacae complex PCR Not detected Enterococc faecalis PCR Not detected Enterococc faecium PCR Not detected E. coli (PCR) Not detected H. influenzae (PCR) Not detected Klebsiella aerogenes (PCR) Not detected Klebsiella oxytoca PCR Not detected Klebsiella pneumoniae Not detected List. monocytogenes PCR Not detected N. meningitidis (PCR) Not detected Proteus species (PCR) Not detected Salmonella spp. (PCR) Not detected Serratia marcescens PCR Not detected Staphylococcus sp PCR Not detected Staph aureus (PCR) Not detected mecA/C & MREJ Resist Gene Not applicable mecA/C-Methicil Resis Gene Not applicable mcr-1 Col[place]in Res Gene PCR Not applicable Staph epidermidis (PCR) Not detected Staph lugdunensis PCR Not detected S. maltophilia (PCR) Not detected Streptococcus sp PCR Not detected Group A Strep (PCR) Not detected Strep agalactiae (PCR) Not detected Strep pneumoniae (PCR) Not detected P. aeruginosa (PCR) Not detected Sanket/B-Vanco Res Genes Not applicable blaIMP Car res Gene PCR Not applicable KPC-Carbap Res Gene PCR Not applicable blaNDM Car Res Gene PCR Not applicable OXA-48 Carbapenem Resis Gene (PCR) Not applicable blaVIM Car Res Gene PCR Not applicable CTX-M Gene Resistance (PCR) Not applicable PFSH Medical History Bipolar disorder Social History household members: none Smoking Status: Current some day smoker Assessment & Plan Assessment & Plan narrative: 1. Sepsis secondary to bacterial PNA, POA 2. Thrombocytopenia, hypotension, and acute respiratory failure with hypoxia due to #1 3. Possible Gram negative bacteremia 4. Hyponatremia PLAN: -continue ceftriaxone and azithromycin, low normal BP but this may be her baseline BP. -monitor CBC with regards to Plt count -await final blood culture results, given improvement, lack of imaging findings on admission, and only 1/4 positive cultures and negative PCR unclear as to the significance of this positive culture. -suspect lab draw error leading to Na of 125 that was previously done, will continue to monitor with BMP daily Anticipate 2 midnights of care, supports inpatient status. Full resuscitation. Time-Based Coding :: [TOTAL MINUTES] spent with patient and on the chart (including review of chart, obtaining history, exam, reviewing outside data, placing orders, documenting exam and treatment plan, and counseling patient) on [DATE].
--- NOTE | 2024-07-25 22:28 | PC.NURSE ---
1950 aware of patient request for Benadryl for itching. to place medication on file.
[2024-07-26] VITALS (9 sets, daily range): BP systolic 102–119; BP diastolic 61–80; PULSE 103–122; RESP 15–21; TEMP 36.3–39.1; O2SAT 93–100
[2024-07-26] MEDS: SODIUM CHLORIDE 0.9% 1,000 ML 100 ML IV (03:37)
[2024-07-26 04:47] LABS: Add Manual Diff / Slide Review NO; Basophils Absolute Auto 0 /uL (0-100); Basophils Percent Auto 0.3 % (0-2); Eosinophils Absolute Auto 0 /uL (0-450); Eosinophils Percent Auto 0.2 % (2-4); Hematocrit 27.1 % (36-46); Hemoglobin 9.6 g/dL (12.0-16.0); Lymphocytes Absolute Auto 1100 /uL (1100-4500); Mean Corpuscular HGB Conc 35.5 % (30-36); Mean Corpuscular Hemoglobin 30.4 PG (26-34); Mean Corpuscular Volume 85.8 fL (80-100); Monocytes Absolute Auto 1200 /uL (0-900); Monocytes Percent Auto 11.1 % (3-14); Neutrophils Absolute Auto 8600 /uL (1500-7000); Neutrophils Percent Auto 78.4 % (50-75); Platelet Count 96 X10^3/uL (150-400); Red Blood Cell Count 3.15 X10^6/uL (4.0-5.2); White Blood Cell Count 10.9 X10^3/uL (4.5-11.0)
[2024-07-26 05:00] LABS: BUN Creatinine Ratio 14.6 (6-22); Blood Urea Nitrogen 7 mg/dL (7-17); Calcium 7.8 mg/dL (8.4-10.2); Carbon Dioxide 19 mmol/L (22-32); Chloride 107 mmol/L (98-107); Estimated Glomerular Filt Rate > 60 mL/min (>60); Glucose 106 mg/dL (70-99); HEMOLYSIS < 15 (0-50); Sodium 134 mmol/L (137-145)
[2024-07-26] MEDS: guaiFENesin ER 600 MG TAB PO ×2 (09:07→20:56)
[2024-07-26] MEDS: ACETAMINOPHEN 325 MG TABLET 650 MG PO ×3 (09:07→22:29)
[2024-07-26] MEDS: cefTRIAXone 2,000 MG in SODIUM CHLORIDE 0.9% 100 ML 200 MG IV (13:22)
[2024-07-26] MEDS: ALBUTEROL 2.5 MG/3 ML NEB (ADULT) INH (13:54)
[2024-07-26] MEDS: AZITHROMYCIN 250 MG TABLET 500 MG PO (14:48)
--- NOTE | 2024-07-26 17:40 | DI.RAD.S_ITS ---
PROCEDURE: XR CHEST 2V INDICATIONS: pleuritic chest pain L, fever persistent TECHNIQUE: 2 views of the chest were acquired. COMPARISON: [facility], CR, XR CHEST 1V, 07/24/2024, 12:26. [facility], CR, XR CHEST 1V, 07/22/2023, 22:47. FINDINGS: Surgical changes and devices: None. Lungs and pleura: Left lower lobe consolidation, increased. Small left pleural effusion suspected. No pneumothorax. Mediastinum: Mediastinal contours appear unchanged. Heart size is normal. Bones and chest wall: No suspicious bony abnormalities. Soft tissues appear unremarkable. IMPRESSION: Left lower lobe consolidation is increased. Suspect pneumonia. Small left pleural effusion. Dictated by: Thierno Figueroa M.D. on 07/26/2024 at 18:29 Approved by: Thierno Figueroa M.D. on 07/26/2024 at 18:30
[2024-07-26 18:04] LABS: Appearance Urine UA CLEAR; Bilirubin Urine UA NEGATIVE (NEGATIVE); Color Urine UA YELLOW; Glucose Urine UA NEGATIVE (Negative); Ketones Urine UA NEGATIVE (NEGATIVE); Leukocyte Esterase Urine UA NEGATIVE (NEGATIVE); Nitrite Urine UA NEGATIVE (Negative); Occult Blood Urine UA NEGATIVE (Negative); Protein Urine UA NEGATIVE (Negative); Urobilinogen Urine UA 0.2 E.U./dL (0.2)
[2024-07-26 18:10] LABS: Bacteria Urine None Seen; Culture Indicated Urine Cult Not Indicated; RBC Urine 0-1/HPF (0-5/HPF); Squamous Epithelial Cell Urine 0-1 /HPF (0-5/HPF); Urine Volume 10mL (spun); WBC Urine None Seen (0-5/HPF)
--- NOTE | 2024-07-26 18:30 | PM.PN.1 ---
Subjective Subjective Interval history: 24 F admitted with sepsis secondary to presumed PNA. Blood cultures positive with GNB, completely negative PCR so unclear as to etiology yet. This morning spiked fever to 102. Complained of dysuria overnight, repeated UA, and then later left pleuritic chest pain. Repeat UA negative. Patient reported possible blood exposure to room mate. Added hepatitis serologies and HIV testing. Repeat CXR does show a L pulmonary infiltrate. Exam Vital Signs (past 8 hours): - 07/26/24 12:00 07/26/24 13:55 07/26/24 16:00 Temperature 97.4 F L 100.7 F H Pulse Rate 103 H 108 H 121 H Respiratory Rate 21 16 18 Blood Pressure 102/61 119/80 Pulse Oximetry 98 100 100 Oxygen Delivery Method Room Air Fraction of Inspired Oxygen 21 SaO2/FiO2 Ratio 466 Oxygen Delivery Method Room Air Oxygen Flow Rate 0 Narrative Exam Narrative: Gen: WDWN no acute distress CV: RRR no m/r/g Pulm: CTA b/l Abd S NT ND Ext: No edema Objective Labs 07/26/24 04:25 07/26/24 04:25 Labs: Laboratory Results - last 24 hr 07/26/24 07/26/24 04:25 17:50 WBC 10.9 RBC 3.15 L Hgb 9.6 L Hct 27.1 L MCV 85.8 MCH 30.4 MCHC 35.5 RDW 15.0 H Plt Count 96 L Neut % (Auto) 78.4 H Lymph % (Auto) 10.0 L [place] % (Auto) 11.1 Eos % (Auto) 0.2 L Baso % (Auto) 0.3 Neut # (Auto) 8600 H Lymph # (Auto) 1100 [place] # (Auto) 1200 H Eos # (Auto) 0 Baso # (Auto) 0 Sodium 134 L Potassium 4.0 Chloride 107 Carbon Dioxide 19 L BUN 7 Creatinine 0.48 L Estimated GFR > 60 BUN/Creatinine Ratio 14.6 Glucose 106 H Calcium 7.8 L Urine Color Yellow Urine Appearance Clear Urine pH 6.0 Ur Specific [place] 1.010 Urine Protein Negative Urine Glucose (UA) Negative Urine Ketones Negative Urine Occult Blood Negative Urine Nitrate Negative Urine Bilirubin Negative Urine Urobilinogen 0.2 Ur Leukocyte Esterase Negative Urine RBC 0-1/hpf Urine WBC None seen Ur Squamous Epith Cells 0-1 /hpf Urine Bacteria None seen Ur Culture Indicated? Cult not indicated Vol Urine Centrifuged 10ml (spun) [facility] Medical History Bipolar disorder Social History household members: none Smoking Status: Current some day smoker Assessment & Plan Assessment & Plan narrative: 1. Sepsis secondary to bacterial PNA, POA 2. Thrombocytopenia, hypotension, and acute respiratory failure with hypoxia due to #1 3. Gram negative bacteremia 4. Hyponatremia PLAN: -continued ceftriaxone and azithromycin, low normal BP but this may be her baseline BP. Repeat CXR today with LLL infiltrate. She is still spiking fevers will change to doxycycline instead for MRSA coverage in addition to other atypical infectious agents. Infiltrate in L chest increased in size, with small effusion. Consider further evaluation with CT chest if not responding to therapies. -monitor CBC with regards to Plt count, this has been improving the last few days. -await final blood culture results. Multiple bottles now growing organisms. -suspect lab draw error leading to Na of 125 that was previously done, will continue to monitor with BMP daily -HIV, hepatitis serologies also sent given continued fever, possible exposure to blood from room-mate reported. Anticipate 2 midnights of care, supports inpatient status. Full resuscitation. Time-Based Coding :: [TOTAL MINUTES] spent with patient and on the chart (including review of chart, obtaining history, exam, reviewing outside data, placing orders, documenting exam and treatment plan, and counseling patient) on [DATE].
[2024-07-26] MEDS: DOXYCYCLINE HYCLATE 100 MG TABLET PO (20:56)
[2024-07-27] VITALS (9 sets, daily range): BP systolic 100–124; BP diastolic 53–71; PULSE 71–137; RESP 15–18; TEMP 35.9–38.7; O2SAT 96–100
[2024-07-27 01:07] LABS: Hepatitis B Core Antibody Negative (Negative)
[2024-07-27] MEDS: IBUPROFEN 400 MG TABLET 800 MG PO (01:55)
[2024-07-27 04:51] LABS: Add Manual Diff / Slide Review NO; Basophils Absolute Auto 0 /uL (0-100); Basophils Percent Auto 0.1 % (0-2); Eosinophils Absolute Auto 0 /uL (0-450); Eosinophils Percent Auto 0.4 % (2-4); Hematocrit 25.3 % (36-46); Hemoglobin 9.1 g/dL (12.0-16.0); Lymphocytes Absolute Auto 1100 /uL (1100-4500); Lymphocytes Percent Auto 10.2 % (25-40); Mean Corpuscular HGB Conc 35.8 % (30-36); Mean Corpuscular Hemoglobin 30.8 PG (26-34); Mean Corpuscular Volume 85.8 fL (80-100); Monocytes Absolute Auto 1400 /uL (0-900); Neutrophils Absolute Auto 8100 /uL (1500-7000); Neutrophils Percent Auto 76.3 % (50-75); Platelet Count 155 X10^3/uL (150-400); Red Blood Cell Count 2.95 X10^6/uL (4.0-5.2); Red Cell Distribution Width 15.1 % (11.6-14.8); White Blood Cell Count 10.7 X10^3/uL (4.5-11.0)
[2024-07-27 05:10] LABS: BUN Creatinine Ratio 9.8 (6-22); Blood Urea Nitrogen 5 mg/dL (7-17); Carbon Dioxide 26 mmol/L (22-32); Chloride 106 mmol/L (98-107); Estimated Glomerular Filt Rate > 60 mL/min (>60); Glucose 106 mg/dL (70-99); HEMOLYSIS < 15 (0-50); Potassium 3.7 mmol/L (3.4-5.1); Sodium 135 mmol/L (137-145)
[2024-07-27 05:48] LABS: Hepatitis B Surface Antigen NEGATIVE s/c (NEGATIVE)
[2024-07-27 06:00] LABS: HIV 1 & 2 Ab/Ag 4th Gen Combo NEGATIVE (NEGATIVE); Hep C Virus Ab w/Reflex Quant NEGATIVE s/c (NEGATIVE)
[2024-07-27] MEDS: DOXYCYCLINE HYCLATE 100 MG TABLET PO ×2 (08:36→21:44)
[2024-07-27] MEDS: guaiFENesin ER 600 MG TAB PO ×2 (08:37→21:44)
--- NOTE | 2024-07-27 09:36 | DI.CT.S_ITS ---
PROCEDURE: CT CHEST W CON INDICATIONS: worsening chest pain, persistent fever, evaluate for empyema TECHNIQUE: After the administration of intravenous contrast, 5 mm thick sections acquired from the pulmonary apices to the posterior costophrenic angles. 1 mm axial lung, 5 mm thick coronal and sagittal reformats and 7 mm axial MIP were acquired. For radiation dose reduction, the following was used: automated exposure control, adjustment of mA and/or kV according to patient size. COMPARISON: [facility], CR, XR CHEST 1V, 07/22/2023, 22:47. [facility], CR, XR CHEST 1V, 07/24/2024, 12:26. [facility], CR, XR CHEST 2V, 07/26/2024, 17:41. FINDINGS: Image quality: Diagnostic. Lower Neck: No enlarged lymph nodes. Thyroid: No thyroid nodules which require sonographic follow up, per consensus guidelines. Axillae: No enlarged lymph nodes. Chest Wall: Unremarkable. Bones: Unremarkable. Lungs and Pleura: Multifocal poorly defined pulmonary nodular infiltrates can be seen, which are worst involving the left lower lobe. There is a small left-sided pleural effusion, measuring 23 Hounsfield units. There is a trace left-sided pleural effusion. No abnormal pleural enhancement can be seen. No pneumothorax is seen. Heart: Heart size is normal. No pericardial effusion. There is a small amount residual thymus tissue seen, which is not regarded to be pathologic in a patient of this age. Thoracic Vessels: The aorta and pulmonary arteries demonstrate normal size. Mediastinum and [place]: No enlarged lymph nodes. Esophagus: No wall thickening. No hiatal hernia. Upper Abdomen: Visualized upper abdomen solid organs and bowel loops appear normal. IMPRESSION: Multifocal nodular infiltrates can be seen. Please consider an embolic process. Bilateral pleural effusions are seen, without pleural enhancement. Benign pleural effusions are felt most likely. Empyema is possible, yet considered to be less likely based upon the imaging findings. Dictated by: Buddy Hatch M.D. on 07/27/2024 at 9:37 Approved by: Buddy Hatch M.D. on 07/27/2024 at 9:41
--- NOTE | 2024-07-27 13:25 | DI.ECHO.S_ITS ---
[facility] : : [id number] : : [place] : : [id number] : : Phone: [phone] Echocardiogram Report + + :Name: JOSEF FOX Study Date: 07/27/2024 Height: 65 in : :Hospital ReadingLocation: Weight: 132 lb: : Gender: Female BSA: 1.7 m2 : :: 2000 Age: 24 yrs : :Reason For Study: SEPTIC EMBOLI, RECURRENT FEVER, EVAL FOR : :VEGETATION : :Ordering Physician: BRANDAN, : :TARYN VIVAS Performed By: Lakeisha Coombs : :Referring: TARYN GIPSON : + + Interpretation Summary The ejection fraction is estimated to be 60-65%. The right ventricle is normal in size and function. There is no obvious vegetation seen on the mitral valve. There is no obvious aortic valvular vegetation. There is no obvious tricuspid valve vegetation. There is no obvious vegetation on the pulmonic valve. There is a trivial pericardial effusion noted. Procedure: A two-dimensional transthoracic echocardiogram with color flow and Doppler was performed. The study quality was technically adequate. There is no prior echocardiogram noted for this patient. The patient was in sinus tachycardia with heart rates between 94-114 bpm during the exam. Left Ventricle: The left ventricle is normal in size and wall thickness. The ejection fraction is estimated to be 60-65%. There are no focal wall motion abnormalities. Diastolic function could not be accurately assessed due to tachycardia. Right Ventricle: The right ventricle is normal in size and function. Atria: The left atrial size is normal. Right atrial size is normal. There is no Doppler evidence for an interatrial shunt. Mitral Valve: The mitral valve leaflets appear to open well. There is no obvious vegetation seen on the mitral valve. There is trace mitral regurgitation. Aortic Valve: The aortic valve is trileaflet. The aortic valve opens well. There is no obvious aortic valvular vegetation. There is no aortic valve stenosis. No aortic regurgitation is present. Tricuspid Valve: The tricuspid valve leaftlets open well. There is no obvious tricuspid valve vegetation. There is mild tricuspid regurgitation. The right ventricular systolic pressure is estimated to be at least 27 mmHg based on an estimated right atrial pressure of 3 mm Hg. Pulmonic Valve: The pulmonic valve leaflets are thin and pliable; valve motion is normal. There is no obvious vegetation on the pulmonic valve. There is no pulmonic valvular regurgitation. Great Vessels: The aortic root is normal size. The dimensions of the ascending aorta are normal. The IVC is of normal diameter and collapses greater than 50% with a sniff. This suggests a low right atrial pressure of 3 mm Hg. Pericardium/ Pleura There is a trivial pericardial effusion noted. MMode/2D Measurements & Calculations LVIDd: 4.7 cm LVOT diam: 2.0 cm LVIDs: 2.9 cm Ao root diam: 2.5 cm FS: 38.5 % asc Aorta Diam: 2.5 cm IVSd: 0.51 cm Ao Arch Diam (Prox Trans): 2.0 cm LVPWd: 0.69 cm LV patel. diameter/BSA (cm/m^2): 2.8 LV sys. diameter/BSA (cm/m^2): 1.7 LA A2 area: 13.4 cm2 RA long axis: 3.7 cm LA A4 area: 12.6 cm2 RA area: 10.1 cm2 LA length (vol): 4.4 cm RA vol: 23.6 ml LA vol: 32.5 ml RA : 14.2 ml/m2 LA vol index: 19.6 ml/m2 IVC diam: 1.3 cm RVD1 (basal): 3.7 cm RVD2 (mid): 3.1 cm TAPSE: 2.2 cm Doppler Measurements & Calculations Ao V2 max: 167.5 cm/sec LVOT Max Praveen: 114.8 cm/sec Ao V2 mean: 115.3 cm/sec LV V1 max P.3 mmHg Ao max P.2 mmHg LV V1 VTI: 18.2 cm Ao mean P.0 mmHg RAMYA(I,D): 2.0 cm2 Ao V2 VTI: 28.3 cm RAMYA(V,D): 2.1 cm2 sev ratio: 0.64 RAMYA indexed to BSA (cm^2/m^2): 1.2 MV E max praveen: 108.0 cm/sec TR max praveen: 244.0 cm/sec Med Peak E' Praveen: 18.5 cm/sec TR max P.8 mmHg E/E' med: 5.8 PA V2 max: 129.1 cm/sec Lat Peak E' Praveen: 17.4 cm/sec PA V2 mean: 87.9 cm/sec E/E' lat: 6.2 PA mean P.4 mmHg E/e' average: 6.0 PA pr(Accel): 31.9 mmHg MV dec time: 0.15 sec SV(LVOT): 56.0 ml Reading Physician:04:48 PM
[2024-07-27] MEDS: ACETAMINOPHEN 325 MG TABLET 975 MG PO ×2 (13:44→23:45)
[2024-07-27] MEDS: cefTRIAXone 2,000 MG in SODIUM CHLORIDE 0.9% 100 ML 200 MG IV (13:44)
--- NOTE | 2024-07-27 13:54 | PM.PN.1 ---
Subjective Subjective Interval history: 24 F admitted with sepsis secondary to presumed PNA. Blood cultures positive with GNB, completely negative PCR so unclear as to etiology yet. Still spiking fever to 101.7. CT chest today showing multifocal pneumonia, TTE ordered to further evaluate for embolic source which was unremarkable. She still has left pleuritic chest pain, though improved with tylenol and motrin. Exam Vital Signs (past 8 hours): - 07/27/24 08:00 07/27/24 12:00 07/27/24 13:30 Temperature 96.7 F L 100.7 F H 101.2 F H Pulse Rate 84 120 H Respiratory Rate 15 16 Blood Pressure 101/60 118/71 Pulse Oximetry 98 99 Oxygen Flow Rate 0 0 07/27/24 13:44 Temperature 101.7 F H Pulse Rate Respiratory Rate Blood Pressure Pulse Oximetry Oxygen Flow Rate Fraction of Inspired Oxygen 21 SaO2/FiO2 Ratio 466 Oxygen Delivery Method Room Air Oxygen Flow Rate 0 Narrative Exam Narrative: Gen: WDWN no acute distress CV: RRR no m/r/g Pulm: CTA b/l Abd S NT ND Ext: No edema Objective Labs 07/27/24 04:14 07/27/24 04:14 Labs: Laboratory Results - last 24 hr 07/26/24 07/26/24 07/27/24 04:25 17:50 04:14 WBC 10.7 RBC 2.95 L Hgb 9.1 L Hct 25.3 L MCV 85.8 MCH 30.8 MCHC 35.8 RDW 15.1 H Plt Count 155 Neut % (Auto) 76.3 H Lymph % (Auto) 10.2 L [place] % (Auto) 13.0 Eos % (Auto) 0.4 L Baso % (Auto) 0.1 Neut # (Auto) 8100 H Lymph # (Auto) 1100 [place] # (Auto) 1400 H Eos # (Auto) 0 Baso # (Auto) 0 Sodium 135 L Potassium 3.7 Chloride 106 Carbon Dioxide 26 BUN 5 L Creatinine 0.51 L Estimated GFR > 60 BUN/Creatinine Ratio 9.8 Glucose 106 H Calcium 8.0 L Urine Color Yellow Urine Appearance Clear Urine pH 6.0 Ur Specific [place] 1.010 Urine Protein Negative Urine Glucose (UA) Negative Urine Ketones Negative Urine Occult Blood Negative Urine Nitrate Negative Urine Bilirubin Negative Urine Urobilinogen 0.2 Ur Leukocyte Esterase Negative Urine RBC 0-1/hpf Urine WBC None seen Ur Squamous Epith Cells 0-1 /hpf Urine Bacteria None seen Ur Culture Indicated? Cult not indicated Vol Urine Centrifuged 10ml (spun) Hep Bs Antigen Negative Hep B Core Total Ab Negative Hepatitis C Antibody Negative HIV 1&2 Ab/P24 Ag 4thGn Negative PFSH Medical History Bipolar disorder Social History household members: none Smoking Status: Current some day smoker Assessment & Plan Assessment & Plan narrative: 1. Sepsis secondary to bacterial PNA, POA 2. Thrombocytopenia, hypotension, and acute respiratory failure with hypoxia due to #1 3. Gram negative bacteremia 4. Hyponatremia PLAN: -continued ceftriaxone and azithromycin, low normal BP but this may be her baseline BP. Repeat CXR with LLL infiltrate. She is still spiking fevers so changed to doxycycline instead for MRSA coverage in addition to other atypical infectious agents. Infiltrate in L chest increased in size, with small effusion. CT showing multifocal infiltrates and small b/l pleural effusions. TTE ordered to assess for possible vegetation which was unremarkable. -discussed over the phone with infectious disease provider. Possibilities include a HACEK organism or Moraxella possibly, also possible anaerobes. Recommended addition of flagyl for now while awaiting results of blood cultures. Recommended repeat procalcitonin which may be reassuring given WBC improvement. -monitor CBC with regards to Plt count, this has been improving the last few days. WBC also improving. -await final blood culture results. Multiple bottles now growing gram negative organism, still pending final sensitivities. -suspect lab draw error leading to Na of 125 that was previously done, will continue to monitor with BMP daily -HIV, hepatitis serologies also sent given continued fever, possible exposure to blood from room-mate reported. Dispo: Discharge home but timing unclear Full resuscitation. Time-Based Coding :: [TOTAL MINUTES] spent with patient and on the chart (including review of chart, obtaining history, exam, reviewing outside data, placing orders, documenting exam and treatment plan, and counseling patient) on [DATE].
[2024-07-27] MEDS: metroNIDAZOLE 500 MG/100 ML PIGGYBACK 100 MG IV (18:19)
[2024-07-27 18:36] LABS: Procalcitonin 4.11 ng/mL (<0.5)
[2024-07-28] MEDS: metroNIDAZOLE 500 MG/100 ML PIGGYBACK 100 MG IV ×3 (01:47→17:18)
[2024-07-28 05:09] LABS: Hepatitis B Surf Ab Qualitativ Non Reactive (.)
[2024-07-28 06:00] VITALS: BP 106/67; PULSE 83; RESP 18; TEMP 36.1; O2SAT 100
[2024-07-28 06:34] LABS: Add Manual Diff / Slide Review NO; Basophils Absolute Auto 100 /uL (0-100); Basophils Percent Auto 0.6 % (0-2); Eosinophils Absolute Auto 100 /uL (0-450); Eosinophils Percent Auto 0.6 % (2-4); Hematocrit 26.7 % (36-46); Hemoglobin 9.1 g/dL (12.0-16.0); Lymphocytes Absolute Auto 1500 /uL (1100-4500); Lymphocytes Percent Auto 11.6 % (25-40); Mean Corpuscular Hemoglobin 29.4 PG (26-34); Mean Corpuscular Volume 86.6 fL (80-100); Monocytes Absolute Auto 1200 /uL (0-900); Monocytes Percent Auto 9.4 % (3-14); Neutrophils Absolute Auto 10300 /uL (1500-7000); Neutrophils Percent Auto 77.8 % (50-75); Platelet Count 275 X10^3/uL (150-400); Red Blood Cell Count 3.08 X10^6/uL (4.0-5.2); White Blood Cell Count 13.2 X10^3/uL (4.5-11.0)
[2024-07-28 06:41] LABS: Blood Urea Nitrogen 4 mg/dL (7-17); Calcium 8.2 mg/dL (8.4-10.2); Carbon Dioxide 25 mmol/L (22-32); Chloride 105 mmol/L (98-107); Estimated Glomerular Filt Rate > 60 mL/min (>60); Glucose 106 mg/dL (70-99); HEMOLYSIS < 15 (0-50); Magnesium 1.8 mg/dL (1.6-2.3); Potassium 4.1 mmol/L (3.4-5.1); Sodium 136 mmol/L (137-145)
[2024-07-28] MEDS: DOXYCYCLINE HYCLATE 100 MG TABLET PO (08:05)
[2024-07-28] MEDS: guaiFENesin ER 600 MG TAB PO (08:05)
--- NOTE | 2024-07-28 09:05 | DI.CT.S_ITS ---
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 Additional oblique axial 3.0 mm sections acquired through the pharynx. 3 mm thick coronal and sagittal reformats were generated. For radiation dose reduction, the following was used: automated exposure control. COMPARISON: [facility], CT, CT CHEST W CON, 07/27/2024, 9:53. FINDINGS: Skull Base: The visualized intracranial contents, skull, and orbits are unremarkable. Visualized paranasal sinuses are clear. Pharynx and Larynx: The nasopharyngeal airway is patent and midline. Parapharyngeal soft tissues including palatine tonsils and base of the tongue are normal. Retropharyngeal space unremarkable. Normal appearance of the false and true vocal cords. Muscles and Fascial Planes: Fascial planes are well maintained. No abscess or mass lesion. Lymph Nodes: At the area of concern in the left neck, level 2A adenopathy measures up to 1.1 cm. Peripheral edema suggests active inflammatory component. Additional left submandibular adenopathy measures 2.1 x 1.3 cm Vasculature: Adjacent to left level 2A adenopathy, there is segmental left internal jugular venous thrombosis also with surrounding edema suggesting an inflammatory component. The IJV is patent both above and below in approximately at 3 cm segment of venous thrombosis. Submandibular and Parotid Glands: 1.9 x 1.5 cm cystic lesion in the right parotid gland is noted with tiny punctate dependent calcification. Thyroid: Unremarkable. No enlarged or calcified nodules. Bones: No acute fracture. No osteolytic or blastic lesion is evident. Normal bone mineralization. Lung Apices: Large left pleural effusion is partially imaged. Right upper lobe adjacent 0.7 cm and 0.5 cm nodules have halo of ground-glass density suggesting inflammatory component. Fluid in the right major fissure partially imaged. Similar 5 mm peripheral left upper lobe nodule noted IMPRESSION: Left level 2A adenopathy adjacent to segmental left internal jugular venous thrombosis with surrounding inflammatory change is consistent with adenitis and thrombophlebitis Large left pleural effusion and inflammatory bilateral upper lobe nodules. Pleural effusion appears slightly larger than recent CT chest study Incidental right parotid cyst, probable simple benign cyst. Approved by: Lj Anglin M.D. on 07/28/2024 at 12:27
--- NOTE | 2024-07-28 09:21 | DI.CT.S_ITS ---
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 For radiation dose reduction, the following was used: automated exposure control, adjustment of mA and/or kV according to patient size. COMPARISON: None. FINDINGS: Image quality: Diagnostic. CSF spaces: Basal cisterns are patent. No extra-axial fluid collections. Ventricles are normal in size and shape. Brain: No midline shift. No intracranial mass effect or hemorrhage. Hurt- white matter interface is normal. Skull and face: Calvarium and visualized facial bones are intact, without suspicious lesions. Sinuses: Visualized sinuses and mastoids are clear. IMPRESSION: Normal CT of the brain Approved by: Lj Anglin M.D. on 07/28/2024 at 10:32
[2024-07-28 10:00] VITALS: BP 105/72; PULSE 89; RESP 16; TEMP 36.4; O2SAT 99
--- NOTE | 2024-07-28 10:14 | CM.DPNOTE ---
DCP Cont Reviewed chart. Patient discussed in multidisciplinary rounds. Cultures are back and Dr Paez consulting with Dr Batista, HECTOR re next steps in treatment course. Imaging pending of face and neck. Plan remains discharge home w/family w/close outpatient follow up- needs to get established with care on [facility]. SW team will plan to update RN transitions of care group upon patient's discharge. Social work team following clinical course closely in case any discharge needs or concerns arise. DEMETRIO
[2024-07-28] MEDS: cefTRIAXone 2,000 MG in SODIUM CHLORIDE 0.9% 100 ML 200 MG IV (13:47)
[2024-07-28 14:00] VITALS: BP 112/61; PULSE 115; RESP 18; TEMP 37.6; O2SAT 99
--- NOTE | 2024-07-28 16:52 | PM.DS.1 ---
History of Present Illness History of Present Illness Date Patient Seen: 07/28/24 Time Patient Seen: 16:53 Chief complaint: hypertension sent by walk in Narrative: From ED doctor: 24-year-old female with no reported medical issues presents with complaint of feeling ill for about a week, patient's develop fevers, she developed a cough in the last 3 days she states has been mildly productive but no discoloration. Describes some left-sided chest pain, patient has felt more short of breath. She has had some nausea and vomiting. She was also had some diarrhea. No black or bloody stools. No urinary symptoms. No abdominal back or flank pain. Patient states no daily medications. No history of reactive airway or asthma. Reports an allergy to amoxicillin that has a rash as a baby but also notes it may has been from a viral illness. Has a surgery for a cyst on her head when she was a baby. Occasionally uses tobacco, uses alcohol intermittently, uses marijuana denies any other recreational or IV drugs. Patient lives on [facility]. Does not have a primary care physician. S: She feels better since having IV fluids. She was had some coughing, nausea, vomiting, diarrhea, and generalized fatigue. She denies any dyspnea. She has been having fevers as well. Discharge Providers Provider Date of admission: 07/24/24 14:04 Discharge Date: 07/28/24 Primary care physician: Crystal Ruano PA-C Discharge provider: Paul Paez DO Summary Hospital Course Discharge Diagnosis: 1. Sepsis secondary to septic thrombophlebitis of L IJ, Lemierre's syndrome, fusobacterium bacteremia, POA 2. Thrombocytopenia, hypotension, and acute respiratory failure with hypoxia due to #1 3. Hyponatremia, mild Hospital Course: This is a 24-year-old female who initially presented on 07/24 with fever, malaise, and a cough prior to admission. She was noted to be febrile to as high as 103 with a left lower lobe infiltrate initially. She continued to have left-sided pleuritic chest pain and fevers, not responding to ceftriaxone and azithromycin. Blood cultures from admission were growing a Gram-negative bacilli but took multiple days to return. While awaiting cultures, azithromycin was changed to doxycycline on 07/26. CT chest was also performed which showed multifocal infiltrates bilaterally and now small bilateral pleural effusions concerning for an embolic phenomenon. TTE was ordered to assess for possible vegetation which was unremarkable. Given initial cultures were growing in anaerobic bottles only added Flagyl on 07/27. Initial procalcitonin of 26 on admission had also improved to 4 on 07/27. The patient continued to have left pleuritic chest pain, but she felt a pop overnight on 07/27 with quick resolution of her pain. She does have some newly developing neck tenderness as well. After blood cultures resulted on 07/28 with fusobacterium necroforum, CT head and neck were performed which did show evidence of septic thrombophlebitis in her left internal jugular vein, there was also an increased left-sided pleural effusion noted on the CT scan of her neck compared to the day prior and a cystic lesion on her R parotid gland. On 07/28 her white blood cell count also increased slightly to 13.2 from 10 the to prior days. Discussed with ENT provider at [facility], who states that typically management is nonsurgical. Then discussed with hospitalist, Dr. Rodriguez, who accepted for transfer for formal Infectious Disease consultation and possible surgical management should she be nonresponsive to antibiotic therapy. Patient did report dental work but was approximately 8 months ago. HIV and hepatitis serologies were negative here. Repeat blood cultures drawn 07/28 early AM are currently without growth. Antibiotic courses - Ceftriaxone 2g total 07/24, 1g given 07/25. 2g given 07/26 with gram negative bacteremia until present (dosing at 1pm) Azithromycin 500 mg 07/24-07/26 Doxycycline 100 mg PO BID 07/26 - 07/28 Flagyl IV 500 mg q8h 07/27 - present Blood cultures - 07/24 - / (both anaerobic bottles) positive for fusobacterium necrophorum (negative beta-lactamase assay) - Repeat blood cultures drawn 07/28 AM. Time Spent with Patient Time spent: Greater than 30 minutes Exam Vital Signs (past 8 hours): - 07/28/24 10:00 07/28/24 14:00 Temperature 97.6 F 99.7 F H Pulse Rate 89 115 H Respiratory Rate 16 18 Blood Pressure 105/72 112/61 Pulse Oximetry 99 99 Oxygen Flow Rate 0 Fraction of Inspired Oxygen 21 SaO2/FiO2 Ratio 466 Oxygen Delivery Method Room Air Oxygen Flow Rate 0 Narrative Exam Narrative: Gen: WDWN no acute distress HEENT: L neck tenderness, mild swelling. No R parotid tenderness. CV: mildly tachycardic, regular rhythm, no m/r/g Abd S NT ND Ext: No edema or rash, nails Objective Imaging CT - Neck: Radiologist's impression: Patient: Gracia Cross MR#: [id number] : 2000 Acct:[id number] Age/Sex: 24 / F Date of Service: 07/28/24 Loc: 225-1 Accession Number: [id number] Procedure: CT soft tissue neck w con Ordering Provider: Paul Paez D.O. 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 Additional oblique axial 3.0 mm sections acquired through the pharynx. 3 mm thick coronal and sagittal reformats were generated. For radiation dose reduction, the following was used: automated exposure control. COMPARISON: [facility], CT, CT CHEST W CON, 07/27/2024, 9:53. FINDINGS: Skull Base: The visualized intracranial contents, skull, and orbits are unremarkable. Visualized paranasal sinuses are clear. Pharynx and Larynx: The nasopharyngeal airway is patent and midline. Parapharyngeal soft tissues including palatine tonsils and base of the tongue are normal. Retropharyngeal space unremarkable. Normal appearance of the false and true vocal cords. Muscles and Fascial Planes: Fascial planes are well maintained. No abscess or mass lesion. Lymph Nodes: At the area of concern in the left neck, level 2A adenopathy measures up to 1.1 cm. Peripheral edema suggests active inflammatory component. Additional left submandibular adenopathy measures 2.1 x 1.3 cm Vasculature: Adjacent to left level 2A adenopathy, there is segmental left internal jugular venous thrombosis also with surrounding edema suggesting an inflammatory component. The IJV is patent both above and below in approximately at 3 cm segment of venous thrombosis. Submandibular and Parotid Glands: 1.9 x 1.5 cm cystic lesion in the right parotid gland is noted with tiny punctate dependent calcification. Thyroid: Unremarkable. No enlarged or calcified nodules. Bones: No acute fracture. No osteolytic or blastic lesion is evident. Normal bone mineralization. Lung Apices: Large left pleural effusion is partially imaged. Right upper lobe adjacent 0.7 cm and 0.5 cm nodules have halo of ground-glass density suggesting inflammatory component. Fluid in the right major fissure partially imaged. Similar 5 mm peripheral left upper lobe nodule noted IMPRESSION: Left level 2A adenopathy adjacent to segmental left internal jugular venous thrombosis with surrounding inflammatory change is consistent with adenitis and thrombophlebitis Large left pleural effusion and inflammatory bilateral upper lobe nodules. Pleural effusion appears slightly larger than recent CT chest study Incidental right parotid cyst, probable simple benign cyst. CT scan - chest: Radiologist's impression: Patient: Gracia Cross MR#: [id number] : 2000 Acct:[id number] Age/Sex: 24 / F Date of Service: 07/27/24 Loc: 225-1 Accession Number: [id number] Procedure: CT chest w con Ordering Provider: Paul Paez D.O. PROCEDURE: CT CHEST W CON INDICATIONS: worsening chest pain, persistent fever, evaluate for empyema TECHNIQUE: After the administration of intravenous contrast, 5 mm thick sections acquired from the pulmonary apices to the posterior costophrenic angles. 1 mm axial lung, 5 mm thick coronal and sagittal reformats and 7 mm axial MIP were acquired. For radiation dose reduction, the following was used: automated exposure control, adjustment of mA and/or kV according to patient size. COMPARISON: [facility], CR, XR CHEST 1V, 07/22/2023, 22:47. [facility], CR, XR CHEST 1V, 07/24/2024, 12:26. [facility], CR, XR CHEST 2V, 07/26/2024, 17:41. FINDINGS: Image quality: Diagnostic. Lower Neck: No enlarged lymph nodes. Thyroid: No thyroid nodules which require sonographic follow up, per consensus guidelines. Axillae: No enlarged lymph nodes. Chest Wall: Unremarkable. Bones: Unremarkable. Lungs and Pleura: Multifocal poorly defined pulmonary nodular infiltrates can be seen, which are worst involving the left lower lobe. There is a small left-sided pleural effusion, measuring 23 Hounsfield units. There is a trace left-sided pleural effusion. No abnormal pleural enhancement can be seen. No pneumothorax is seen. Heart: Heart size is normal. No pericardial effusion. There is a small amount residual thymus tissue seen, which is not regarded to be pathologic in a patient of this age. Thoracic Vessels: The aorta and pulmonary arteries demonstrate normal size. Mediastinum and Princess: No enlarged lymph nodes. Esophagus: No wall thickening. No hiatal hernia. Upper Abdomen: Visualized upper abdomen solid organs and bowel loops appear normal. IMPRESSION: Multifocal nodular infiltrates can be seen. Please consider an embolic process. Bilateral pleural effusions are seen, without pleural enhancement. Benign pleural effusions are felt most likely. Empyema is possible, yet considered to be less likely based upon the imaging findings. Labs 07/28/24 06:13 07/28/24 06:13 Labs: Laboratory Results - last 24 hr 07/24/24 07/27/24 07/27/24 12:37 04:14 17:49 WBC RBC Hgb Hct MCV MCH MCHC RDW Plt Count Neut % (Auto) Lymph % (Auto) [place] % (Auto) Eos % (Auto) Baso % (Auto) Neut # (Auto) Lymph # (Auto) [place] # (Auto) Eos # (Auto) Baso # (Auto) Sodium Potassium Chloride Carbon Dioxide BUN Creatinine Estimated GFR BUN/Creatinine Ratio Glucose Calcium Magnesium Procalcitonin 4.11 H A.calcoaceticus-baumannii cmplx PCR Not detected Bacteroides fragilis Not detected Brooklynn albicans (PCR) Not detected Brooklynn auris (PCR) Not detected C. glabrata (PCR) Not detected C. krusei (PCR) Not detected C. parapsilosis (PCR) Not detected C. tropicalis (PCR) Not detected C. neoform/gattii (PCR) Not detected Enterobacterales (PCR) Not detected E. cloacae complex PCR Not detected Enterococc faecalis PCR Not detected Enterococc faecium PCR Not detected E. coli (PCR) Not detected H. influenzae (PCR) Not detected Hep Bs Antibody Non reactive Klebsiella aerogenes (PCR) Not detected Klebsiella oxytoca PCR Not detected Klebsiella pneumoniae Not detected List. monocytogenes PCR Not detected N. meningitidis (PCR) Not detected Proteus species (PCR) Not detected Salmonella spp. (PCR) Not detected Serratia marcescens PCR Not detected Staphylococcus sp PCR Not detected Staph aureus (PCR) Not detected mecA/C & MREJ Resist Gene Not applicable mecA/C-Methicil Resis Gene Not applicable mcr-1 Colistin Res Gene PCR Not applicable Staph epidermidis (PCR) Not detected Staph lugdunensis PCR Not detected S. maltophilia (PCR) Not detected Streptococcus sp PCR Not detected Group A Strep (PCR) Not detected Strep agalactiae (PCR) Not detected Strep pneumoniae (PCR) Not detected P. aeruginosa (PCR) Not detected Sanket/B-Vanco Res Genes Not applicable blaIMP Car res Gene PCR Not applicable KPC-Carbap Res Gene PCR Not applicable blaNDM Car Res Gene PCR Not applicable OXA-48 Carbapenem Resis Gene (PCR) Not applicable blaVIM Car Res Gene PCR Not applicable CTX-M Gene Resistance (PCR) Not applicable 07/28/24 06:13 WBC 13.2 H RBC 3.08 L Hgb 9.1 L Hct 26.7 L MCV 86.6 MCH 29.4 MCHC 34.0 RDW 15.0 H Plt Count 275 Neut % (Auto) 77.8 H Lymph % (Auto) 11.6 L [place] % (Auto) 9.4 Eos % (Auto) 0.6 L Baso % (Auto) 0.6 Neut # (Auto) 52798 H Lymph # (Auto) 1500 [place] # (Auto) 1200 H Eos # (Auto) 100 Baso # (Auto) 100 Sodium 136 L Potassium 4.1 Chloride 105 Carbon Dioxide 25 BUN 4 L Creatinine 0.50 L Estimated GFR > 60 BUN/Creatinine Ratio 8.0 Glucose 106 H Calcium 8.2 L Magnesium 1.8 Procalcitonin A.calcoaceticus-baumannii cmplx PCR Bacteroides fragilis Brooklynn albicans (PCR) Brooklynn auris (PCR) C. glabrata (PCR) C. krusei (PCR) C. parapsilosis (PCR) C. tropicalis (PCR) C. neoform/gattii (PCR) Enterobacterales (PCR) E. cloacae complex PCR Enterococc faecalis PCR Enterococc faecium PCR E. coli (PCR) H. influenzae (PCR) Hep Bs Antibody Klebsiella aerogenes (PCR) Klebsiella oxytoca PCR Klebsiella pneumoniae List. monocytogenes PCR N. meningitidis (PCR) Proteus species (PCR) Salmonella spp. (PCR) Serratia marcescens PCR Staphylococcus sp PCR Staph aureus (PCR) mecA/C & MREJ Resist Gene mecA/C-Methicil Resis Gene mcr-1 Colistin Res Gene PCR Staph epidermidis (PCR) Staph lugdunensis PCR S. maltophilia (PCR) Streptococcus sp PCR Group A Strep (PCR) Strep agalactiae (PCR) Strep pneumoniae (PCR) P. aeruginosa (PCR) Sanket/B-Vanco Res Genes blaIMP Car res Gene PCR KPC-Carbap Res Gene PCR blaNDM Car Res Gene PCR OXA-48 Carbapenem Resis Gene (PCR) blaVIM Car Res Gene PCR CTX-M Gene Resistance (PCR) PFSH Medical History Bipolar disorder Social History household members: none Smoking Status: Current some day smoker Discharge Plan Discharge Plan Patient Disposition: [facility] Provider Discharge Comment: See transfer / discharge summary Discharge Health Status Multidrug resistant organism: No MDRO Precautions: [place] Diet/Activity/Treatments Diet: Diet as Tolerated and Regular Liquid consistency: Normal/Thin Food texture: Regular Activity: No restrictions Discharge Data Primary Care Provider: Crystal Ruano
[2024-07-28 18:00] VITALS: BP 115/67; PULSE 121; RESP 18; TEMP 36.6; O2SAT 97
--- NOTE | 2024-07-28 19:29 | PC.NURSE ---
All belongings with pt and pt's mother. No medication in nurse cafeteria food server or safe or pharmacy. Pt and pt's mother stated all questions answered. Transferred care of pt to [facility] store warehouse associate to transport to [facility] for higher level of care. Pt transported via gurney to ambulance by store warehouse associate, mother accompanying.
== END 2024-07-28 18:50 | disposition short-term general hospital (02) | DRG 871 ==
LOC: ED 13:56 → AC 14:04
PROVIDERS: Internal Medicine; Admitting Provider Hospitalist; Emergency Provider Emergency Medicine; PCP Physician Assistant; Referring Provider Emergency Medicine; Visit Provider Hospitalist
DX: A41.50 Gram-negative sepsis, unspecified (principal); J96.01 Acute respiratory failure with hypoxia; E87.1 Hypo-osmolality and hyponatremia; J90 Pleural effusion, not elsewhere classified; F17.200 Nicotine dependence, unspecified, uncomplicated; E87.6 Hypokalemia; R11.2 Nausea with vomiting, unspecified; R19.7 Diarrhea, unspecified; D69.59 Other secondary thrombocytopenia; I80.8 Phlebitis and thrombophlebitis of other sites; R65.20 Severe sepsis without septic shock; Z88.1 Allergy status to other antibiotic agents; Z20.89 Contact with and (suspected) exposure to other communicable diseases
CPT/HCPCS: 0241U; 36415; 70450; 70491; 71045; 71046; 71260; 80048; 80053; 81001; 81025; 83605; 83690; 83735; 84145; 84703; 85007; 85025; 85610; 85730; 86704; 86706; 86803; 87040; 87154; 87185; 87340; 87389; 87633; 93005; 93306; 94640; 96361; 96365; 96368; 99285; J0696; J7613; Q9967